=== PATIENT | female | born 1975 | race Caucasian/White ===

== ENCOUNTER 2022-07-21 10:05 | Emergency (ER) | payer OTHER ==
[~2022-07-21] VITALS: Ht 165.1 cm; Wt 61.2 kg
--- NOTE | 2022-07-21 10:50 | NUR ---
Pt refused EKG, blood draw and Xray, ERMD notified.
--- NOTE | 2022-07-21 11:15 | NUR ---
ER physician spoke with the patient. Blood drawn and EKG done.
[2022-07-21 11:20] LABS: HEMATOCRIT 39.8 % (31.2-41.9); MEAN CORPUSCULAR HEMOGLOBIN 27.1 uug (24.7-32.8); MEAN CORPUSCULAR VOLUME 82.7 fL (75.5-95.3); PLATELET COUNT (AUTO) 232 K/uL (179-408)
[2022-07-21] MEDS ORDERED: diphenhydrAMINE 25 MG CAP PO ONE (12:10)
[2022-07-21] MEDS ORDERED: diphenhydrAMINE 50 MG/1 ML VIAL IV ONE (12:15)
--- NOTE | 2022-07-21 12:25 | NUR ---
Attempted to start saline lock and obtain consent for CTA, pt refused, ERMD notified.
[2022-07-21 12:37] LABS: CREATININE 0.7 mg/dL (0.6-1.3); POTASSIUM 3.5 mmol/L (3.5-5.1)
[2022-07-21 12:50] LABS: BILIRUBIN,TOTAL 0.4 mg/dL (0.2-1.0); TOTAL PROTEIN, SERUM 7.4 g/dL (6.4-8.2)
[2022-07-21] MEDS ORDERED: SWABABLE VALVE TRANSFER SET EA MC ONE (13:10)
[2022-07-21] MEDS ORDERED: IOHEXOL 350 100 ML INFUS..BTL ONE (13:10)
[2022-07-21] MEDS ORDERED: IV NORMAL SALINE 250 ML IV ONE (13:11)
[2022-07-21] MEDS ORDERED: BENZ-13 PO (14:27)
--- NOTE | 2022-07-21 14:28 | NUR ---
IV removed. Catheter intact and site benign. Pressure and 4x4 gauze applied to site. No bleeding noted.
--- NOTE | 2022-07-21 14:29 | NUR ---
Patient discharged to home in stable condition. Written and verbal after care instructions given. Patient verbalizes understanding of instructions. Stressed follow up or return to ER for worsening s/s.
== END 2022-07-21 14:30 | disposition home or self-care (01) ==
LOC: ER 10:05
DX: R05.9 Cough, unspecified (principal); R07.9 Chest pain, unspecified; R06.02 Shortness of breath; J39.2 Other diseases of pharynx; R00.0 Tachycardia, unspecified; R79.1 Abnormal coagulation profile
CPT/HCPCS: 99285; 96374; 71275; 71045; 80053; 83880; 85025; 85379; 84484 ×2; 36415; 93005; Q0163; Q9967; A4663